=== PATIENT | female | born 1965 | race Caucasian/White ===

== ENCOUNTER 2019-11-03 05:51 | Inpatient (IN) ==
--- NOTE | 2019-10-14 15:33 | PAT Medication Instructions ---
Medication Instructions Date of Service October 14, 2019 Home Medications atorvastatin 10 mg PO QPM hydrocodone-acetaminophen 1 tab PO UD PRN multivitamin 1 cap PO DAILY DO NOT take the morning of surgery multivitamin 1 cap PO DAILY Take morning of surgery With a small sip of water, OTHERWISE NOTHING TO EAT OR DRINK AFTER MIDNIGHT: hydrocodone-acetaminophen 1 tab PO UD PRN (okay to take up to 4 hours prior to surgery if needed) Take evening before surgery hydrocodone-acetaminophen 1 tab PO UD PRN (if needed) atorvastatin 10 mg PO QPM Other Notes If you have any questions please call us at [phone] or [phone] or [phone] or [phone]
--- NOTE | 2019-10-15 10:57 | Anesthesiology Consultation ---
Date of Service October 15, 2019 Assessment & Plan (1) Encounter for pre-operative examination: Chart Review Chart Review: Acceptable Risk for Surgery and Patient seen in Pre Admission Testing Teaching & Discussion Instructed NPO after midnight before surgery, except medications with 15 cc of water. Medication instructions provided according to the PAT guidelines. History Surgery Operation Date: 10/29/19 07:45 Proposed Procedures p C5-C7 Anterior Cervical Discectomy and Fusion with Spinal Cord Monitoring - Zana Mason, Height/Weight Height: 5 ft 3 in Weight: 85.2 kg Allergies Allergy/AdvReac Type Severity Reaction Status Date / Time bupropion [From Wellbutrin] Allergy Unknown Hives Verified 10/06/19 11:10 cephalexin [From Keflex] Allergy Unknown Hives Verified 10/06/19 11:10 ibuprofen Allergy Unknown Hives Verified 10/06/19 11:10 varenicline [From Chantix] AdvReac Severe BAD Verified 10/06/19 11:10 NIGHTMARES Medications Home Medications Medication Instructions Recorded Confirmed Last Taken atorvastatin 10 mg PO QPM 10/06/19 10/06/19 Unknown hydrocodone-acetaminophen 1 tab PO UD PRN 10/06/19 10/06/19 Unknown multivitamin 1 cap PO DAILY 10/06/19 10/06/19 Unknown Past Medical History Medical History Bulging discs NECK Colitis Microscopic colitis; chronic diarrhea. Emphysema lung MILD. Has albuterol inhaler but only uses it when it's extremely humid outside. History of major depression HX MEDS, SINCE D/C'D, NOT A CURRENT PROBLEM Hyperlipidemia Exercise / Class Metabolic Activity III < 4 Walking/Shop/Light housework (+SOB with 1 FOS, feels she would have to stop at the top to catch her breath. Denies any chest pain.) Past Family History Family History Father Family history of diabetes mellitus Grandmother No problems noted. Grandfather (Maternal) No problems noted. Grandmother (Paternal) Family history of diabetes mellitus Grandmother (Maternal) Family history of diabetes mellitus Past Surgical History Surgical History History of 2 sections History of carpal tunnel surgery of left wrist History of carpal tunnel surgery of right wrist History of colonoscopy History of hysterectomy History of tonsillectomy Past Anesthesia History No Hx of Anesthesia Complications and No Family Hx of Anesthesia Complications History of PONV No Hx of PONV and No Hx of Motion Sickness STOP BANG Total 2 Social History Smoking Status: Current every day smoker tobacco type: cigarettes Smoking cigarettes per day: 1PPD/ADVISED NPO Do You Dip or Chew Tobacco: No Hx Alcohol Use: No Hx Substance Use: No Review of Systems Pt denies any recent chest pain, shortness of breath, palpitations, cough, fever or URI. Physical Exam Vital Signs BP: 114/79 P: 83bpm SPO2: 97% RA T: 97.9 F R: 16 ENMT Mouth: + dentures and + edentulous Thyromental Distance: > or= 3.5 Finger Breadths (3.5) Mallampati Class: I Neck normal visual inspection and + limited neck extension (very) Respiratory normal respiratory effort Auscultation: lungs clear to auscultation bilaterally Cardiovascular Rate/Rhythm: regular rate and regular rhythm Heart Sounds: no murmur Vessels: no carotid bruit Testing Laboratory Results 10/15/19 11:06 10/15/19 11:06 PT 10.8 Seconds (9.0-12.0) 10/15/19 11:06 INR 1.0 (0.9-1.1) 10/15/19 11:06 APTT 29.4 Seconds (21.0-31.0) 10/15/19 11:06 Urine Color Yellow 10/15/19 11:06 Urine Appearance Clear (Clear) 10/15/19 11:06 Urine pH 5.0 (4.5-7.5) 10/15/19 11:06 Ur Specific [place] 1.025 (1.000-1.030) 10/15/19 11:06 Urine Protein Negative (Negative) 10/15/19 11:06 Urine Glucose (UA) Negative (Negative) 10/15/19 11:06 Urine Ketones Negative (Negative) 10/15/19 11:06 Urine Nitrite Negative (Negative) 10/15/19 11:06 Ur Leukocyte Esterase 2+ (Negative) H 10/15/19 11:06 Urine WBC (Auto) 5-10 /hpf (0-5) H 10/15/19 11:06 Urine RBC (Auto) 5-10 /hpf (0-4) H 10/15/19 11:06 U Hyaline Cast (Auto) 1-5 /lpf (0-5) 10/15/19 11:06 U Epithel Cells (Auto) >30 /lpf (0-5) H 10/15/19 11:06 Urine Bacteria (Auto) Negative (Negative) 10/15/19 11:06 Blood Type O Positive 10/15/19 11:06 Antibody Screen NEGATIVE 10/15/19 11:06 Electrocardiogram Date: 10/15/19 Findings: + NSR @ (67bpm) iRBBB. Chest X-Ray Date: 10/15/19 Findings: + NAD
--- NOTE | 2019-10-15 11:42 | XRay Report ---
XR chest Pre-admission PA/Lat HISTORY: 54 years-old Female pat preoperative exam. No acute chest complaints COMPARISON: None TECHNIQUE: PA and lateral views of the chest FINDINGS: Cardiomediastinal and hilar silhouettes are within normal limits. There is no pneumothorax, pleural e ffusion, airspace consolidation or overt pulmonary edema. Bones of the chest appear grossly intact. IMPRESSION: No acute process. ACT 112: Negative or not required by law. The above report was generated using voice recognition software. It may contain grammatical, syntax o r spelling errors. Electronically signed by: Tejas Rodriguez M.D. 10/15/2019 11:41 AM
[2019-10-15 12:05] LABS: Basophils # (auto) 0.02 K/uL (0-0.2); Basophils % (auto) 0.3 %; Eosinophils # (auto) 0.08 K/uL (0-0.5); Hemoglobin 13.6 g/dL (12.0-16.0); Immature Granulocytes # (auto) 0.02 K/uL (0.00-0.02); Immature Granulocytes % (auto) 0.3 %; Lymphocytes # (auto) 1.92 K/uL (1.2-3.4); Lymphocytes % (auto) 25.1 %; Mean Corpuscular Hemoglobin 31.1 pg (25-34); Mean Corpuscular Hgb Conc 32.4 g/dL (32-36); Mean Corpuscular Volume 95.9 fL (80-100); Mean Platelet Volume 10.5 fL (7.4-10.4); Monocytes # (auto) 0.53 K/uL (0.11-0.59); Monocytes % (auto) 6.9 %; Neutrophils # (auto) 5.08 K/uL (1.4-6.5); Neutrophils % (auto) 66.4 %; Platelet Count 247 K/uL (130-400); RDW Coefficient of Variation 13.6 % (11.5-14.5); RDW Standard Deviation 47.9 fL (36.4-46.3); Red Blood Count 4.38 M/uL (4.2-5.4); White Blood Count 7.65 K/uL (4.8-10.8)
[2019-10-15 12:23] LABS: BUN Creatinine Ratio 9.8 (10-20); Calcium 9.1 mg/dl (8.5-10.1); Creatinine Clr Calc Pharmacy 65.6 ml/min; Est GFR (African American) 73.8; Est GFR (Non-African American) 63.7; Potassium 4.2 mmol/L (3.5-5.1)
[2019-10-15 12:24] LABS: Appearance Urine Clear (Clear); Bacteria Urine Automated Negative (Negative); Bilirubin Urine Negative (Negative); Blood Urine 1+ (Negative); Color Urine Yellow; Epithelial Cell Urine Auto >30 /lpf (0-5); Glucose Urine UA Negative (Negative); Ketones Urine Negative (Negative); Leukocyte Esterase Urine 2+ (Negative); Nitrite Urine Negative (Negative); Protein Urine Negative (Negative); Specific Gravity Urine 1.025 (1.000-1.030); Urobilinogen Urine Negative (Negative)
[2019-10-15 12:28] LABS: Partial Thromboplastin Ratio 1.1; Partial Thromboplastin Time 29.4 Seconds (21.0-31.0); Prothrombin Time 10.8 Seconds (9.0-12.0)
--- NOTE | 2019-10-15 17:02 | Electrocardiogram Report ---
Test Reason : Blood Pressure : / mmHG Vent. Rate : 067 BPM Atrial Rate : 067 BPM P-R Int : 136 ms QRS Dur : 092 ms QT Int : 418 ms P-R-T Axes : 065 044 058 degrees QTc Int : 441 ms Normal sinus rhythm Incomplete right bundle branch block Borderline ECG No previous ECGs available Confirmed by Gera Xiong ([id number]) on 10/15/2019 5:01:47 PM Referred By: Zana Mason Confirmed By:Gera Xiong
[2019-11-03] MEDS ORDERED: ACETAMINOPHEN 500 MG TAB PO SCH (06:00)
[2019-11-03] MEDS ORDERED: CLINDAMYCIN 600 MG/54 ML BAG IV SCH (06:00)
[2019-11-03] MEDS ORDERED: CEFAZOLIN 2000MG 2,000 MG/15 ML SYR IV SCH (06:00)
[2019-11-03] MEDS ORDERED: LR 15ML/HR IV SCH (06:00)
[2019-11-03] MEDS ORDERED: CeleBREX 200 MG CAP PO SCH (06:00)
[2019-11-03] MEDS ORDERED: GABAPENTIN 600 MG DOSE PO SCH (06:00)
[2019-11-03] MEDS ORDERED: ATROPINE SULFATE 0.1 MG/ML 10ML SYR IV PRN (06:42)
[2019-11-03] MEDS ORDERED: HYDROmorphone INJ 1 MG/ML SYRINGE IV PRN ×2 (06:42→11:16)
[2019-11-03] MEDS ORDERED: ePHEDrine sulfate 50 MG/ML AMP IV PRN (06:42)
[2019-11-03] MEDS ORDERED: ONDANSETRON INJ 2 MG/ML 2 ML VIAL IV PRN ×2 (06:42→11:16)
[2019-11-03] MEDS ORDERED: fentaNYL citrate 100 MCG/2 ML VIAL IV PRN (06:42)
[2019-11-03] MEDS ORDERED: LIDOCAINE HCL 2% 2 ML VIAL/AMP(20MG/ML) INFIL ONE (07:02)
[2019-11-03] MEDS ORDERED: MIDAZOLAM HCL 1 MG/ML 2ML VIAL ONE (07:02)
[2019-11-03] MEDS ORDERED: PROPOFOL IV EMULSION 10 MG/ML 20 ML VIAL IV ONE (07:02)
[2019-11-03] MEDS ORDERED: fentaNYL citrate 100 MCG/2 ML VIAL ONE (07:02)
[2019-11-03] MEDS ORDERED: BACITRACIN INJ 50,000 UNIT VIAL ONE (07:05)
[2019-11-03] MEDS ORDERED: PROPOFOL IV EMULSION 10 MG/ML 100 ML VIAL IV ONE (07:15)
--- NOTE | 2019-11-03 07:40 | History & Physical Bridge Note ---
Date of Service November 03, 2019 History & Physical Bridge Note I have examined the patient, reviewed the History & Physical and in the interval since the performance of the History & Physical I have noted the following changes of clinical significance: no changes noted
--- NOTE | 2019-11-03 07:42 | History & Physical Report ---
Date of Service November 03, 2019 Assessment & Plan (1) Herniation of cervical intervertebral disc with radiculopathy: C5-C7 anterior cervical discectomy and fusion Present on Admission?: Yes History of Present Illness Chief Complaint: Neck and right arm pain and weakness Primary Care Provider: Enrico Lima, DO This is a 54-year-old [id number] female presents with worsening arm pain and weakness. It has been progressive in nature despite aggressive nonoperative. In order to per vent long-term sequelae and permanent neurologic deficit she is here for surgical intervention. Allergies Allergy/AdvReac Type Severity Reaction Status Date / Time bupropion [From Wellbutrin] Allergy Unknown Hives Verified 11/03/19 06:12 cephalexin [From Keflex] Allergy Unknown Hives Verified 11/03/19 06:12 ibuprofen Allergy Unknown Hives Verified 11/03/19 06:12 varenicline [From Chantix] AdvReac Severe BAD Verified 11/03/19 06:12 NIGHTMARES Home Medications Home Medications Medication Instructions Recorded Confirmed Type atorvastatin 10 mg PO QPM 10/06/19 11/03/19 History hydrocodone-acetaminophen 1 tab PO BID PRN 10/06/19 11/03/19 History multivitamin 1 cap PO DAILY 10/06/19 11/03/19 History Past Med/Surg History Medical History Bulging discs NECK Colitis Microscopic colitis; chronic diarrhea. Emphysema lung MILD. Has albuterol inhaler but only uses it when it's extremely humid outside. History of major depression HX MEDS, SINCE D/C'D, NOT A CURRENT PROBLEM Hyperlipidemia Surgical History History of 2 sections History of carpal tunnel surgery of left wrist History of carpal tunnel surgery of right wrist History of colonoscopy History of hysterectomy History of tonsillectomy Family History Father Family history of diabetes mellitus Grandmother No problems noted. Grandfather (Maternal) No problems noted. Grandmother (Paternal) Family history of diabetes mellitus Grandmother (Maternal) Family history of diabetes mellitus Social History Preferred Language: Greenlandic Communication Ability: Effective Grid Molder Required: No Beliefs That Will Affect Care: None Current Living Situation: Significant Other Other Information That Helps Us Care for You: No Feels Safe at Home: Yes Smoking Status: Current every day smoker Tobacco Type: cigarettes ; Cigarettes Per Day: 1PPD/ADVISED NPO ; Do You Dip or Chew Tobacco: No ; Tobacco Cessation Education Requested by Patient: No Hx Alcohol Use: No Hx Substance Use: No Physical Exam Physical Exam: Patient is alert and oriented in obvious distress with deficits to testing the right upper extremity. Results & Data Vital Signs (Past 12 Hours) Vital Signs Temp Pulse Resp BP Pulse Ox 11/03/19 05:55 36.8 C 74 20 122/82 96
[2019-11-03] MEDS ORDERED: CLINDAMYCIN 600 MG/54 ML D5W IV ONE (07:50)
[2019-11-03] MEDS ORDERED: DEXAMETHASONE SOD INJ 4 MG/ML VIAL ONE (08:27)
[2019-11-03] MEDS ORDERED: ONDANSETRON INJ 2 MG/ML 2 ML VIAL ONE (08:27)
[2019-11-03] MEDS ORDERED: ROCURONIUM BROMIDE 10 MG/ML 5 ML VIAL ONE (08:27)
[2019-11-03] MEDS ORDERED: NEOSTIGMINE METHYLSULFATE 5 MG/5 ML SYR ONE (08:40)
[2019-11-03] MEDS ORDERED: PHENYLEPHRINE 100MCG/ML 5ML SYR ONE (08:40)
[2019-11-03] MEDS ORDERED: GLYCOPYRROLATE 0.2 MG/ML VIAL ONE (08:40)
[2019-11-03] MEDS ORDERED: FLOSEAL HEMOSTATIC MATRIX 10ML TOP ONE (09:07)
--- NOTE | 2019-11-03 09:28 | Operative Report ---
Post Operative Report Pre & Post Diagnosis Operation Date: 11/03/19 07:45 Pre-Op Diagnosis: Herniation of Cervical Intervertebral Disc with Radiculopathy C5-C7 Post-Op Diagnosis: Herniation of Cervical Intervertebral Disc with Radiculopathy C5-C7 I identified the patient and participated in the time-out.: Yes Procedure Operation Date: 11/03/19 07:45 Actual Procedures #1 anterior cervical discectomy with bilateral foraminotomies C5-6 and C6-7. #2 anterior cervical arthrodesis C5-6 and C6-7. #3 placement of Spira cage 8 mm in height filled with DBM at C5-6 and C6-7. #4 application of cabrera plate and screws across C5-6 and C6-7. Surgeon Zana Mason, Hairspring Studder Gabriela Interiano Estimated Blood Loss 10 Findings Consistent with Post-Op Diagnosis Specimens None Indications This is a 54-year-old female presents with significant neural compression in the cervical spine with subsequent radiculopathy and weakness affecting the upper extremities. Therefore we elected undergo urgent decompression and fusion. Description of Procedure Patient was met with preop the case discussed all questions dressed with heparin patient was taken back to the operative suite underwent intubation placed in supine position the Ruben table the head Mcgraw head setter. All bony prom inences well-padded eyes inspected to ensure no external pressure placed upon the. This point the anterior cervical spine was prepped and draped in normal sterile fashion. The assistance of fluoroscopy identified the see 6 vertebral body and a transverse incision was placed on the right anterior aspect of the cervical spine aligns region. Sharp dissection with the assistance of bipolar electrocautery performed to expose the anterior cervical spine from C5-C7. A self-retaining tractor was placed. Then performed a complete discectomy of C5-6 out to the uncovertebral spur laterally. This included removal of all posterior annular fibers longitudinal ligament bilateral foraminotomies performed. Endplates were then burred to subcortical bleeding bone and an 8 mm Spira cage filled with DBM tapped in position. Then proceeded to see 6 7. Again complete discectomy performed up to the operative joints bilaterally. This area did have a significant loss of muscle disc material and bilateral foraminal they removed in their entirety. Endplates were then burred to subcortical bleeding bone and an 8 mm spiral cage filled with DBM tapped in position. Distracting apparatus was removed all anterior osteophytes burred to a smooth cortical surface and a 5 complete and screws applied with the assistance of fluoroscopy. The incision was then copiously irrigated explored to ensure no damage to surrounding structures remaining bleeding. 10 round JACY drain inserted. Incision was then closed with 2 Vicryl in a fashion of 4 Monocryl for final skin closure. Steri- Strips dressings placed. Patient will continue PACU stable addition. Please note Gabriela Interiano was present at the entire procedure involved the patient positioning complex portions of the surgery and final skin closure. Lastly spinal cord monitoring was utilized that the procedure no changes noted. I attest to the content of the Intraoperative Record and any orders documented therein. Any exceptions are noted below.
--- NOTE | 2019-11-03 09:45 | Fluoroscopy Report ---
FL cervical 2-3V CLINICAL HISTORY: ACDF C5-7 COMPARISON STUDY: None. FLUOROSCOPY TIME: 15 seconds. FLUOROSCOPIC IMAGES: 3 FINDINGS: Fluoroscopy was provided for a C5-C7 anterior discectomy and fusion. Hardware is intact. Al ignment is anatomic. Endotracheal tube is partially imaged. IMPRESSION: Fluoroscopy provided for C5-C7 anterior discectomy and fusion. ACT 112: Negative or not required by law. Electronically signed by: Ronnie Nowak M.D. 11/03/2019 9:43 AM
--- NOTE | 2019-11-03 10:42 | Anesthesiology Progress Note ---
Date of Service November 03, 2019 Anesthesia Post Procedure Vital Signs Vital Signs: Temp Pulse Pulse Resp BP Pulse Ox 11/03/19 10:35 36.4 C L 57 L 18 99/60 L 100 11/03/19 10:25 36.2 C L 53 L 18 98/64 L 98 11/03/19 10:15 58 L 12 96/63 L 98 11/03/19 10:05 57 L 17 97/60 L 100 11/03/19 09:55 59 L 13 89/54 L 100 11/03/19 09:45 69 23 103/68 100 11/03/19 09:39 36.7 C 77 12 108/71 100 11/03/19 05:55 36.8 C 74 20 122/82 96 Pain Intensity Neck: Pain Intensity: 3 Transfer of Care Handoff Completed per policy Notes Mental Status: alert / awake / arousable and participated in evaluation Patient Amnestic to Procedure: Yes Nausea / Vomiting: adequately controlled Pain: adequately controlled Airway Patency, RR, SpO2: stable & adequate BP & HR: stable & adequate Hydration State: stable & adequate Anesthetic Complications: no major complications apparent and Pt Satisfied with anesthetic care
[2019-11-03] MEDS ORDERED: METOCLOPRAMIDE HCL INJ 5 MG/ML 2 ML VIAL IV PRN (11:16)
[2019-11-03] MEDS ORDERED: LORazepam 0.5 MG TAB PO PRN (11:16)
[2019-11-03] MEDS ORDERED: DEXAMETHASONE SOD PHOSPHATE 8 MG in SYRINGE 0 ML IV PRN (11:16)
[2019-11-03] MEDS ORDERED: ACETAMINOPHEN 500 MG TAB PO PRN (11:16)
[2019-11-03] MEDS ORDERED: MAGNESIUM HYDROXIDE SUSP 30 ML UDC PO PRN (11:16)
[2019-11-03] MEDS ORDERED: RACEPINEPHRINE 2.25% NEBU SOLN 0.5 ML VIAL INH PRN (11:16)
[2019-11-03] MEDS ORDERED: ALUMINUM/MAGNESIUM SUSP 30 ML UDC PO PRN (11:16)
[2019-11-03] MEDS ORDERED: PROMETHAZINE HCL 12.5 MG in SODIUM CHLORIDE 0.9% 50 ML IV PRN (11:16)
[2019-11-03] MEDS ORDERED: LORazepam 0.5 MG/1 ML VIAL IV PRN (11:16)
[2019-11-03] MEDS ORDERED: ACETAMINOPHEN 1,000 MG/100 ML VIAL IV PRN (11:16)
[2019-11-03] MEDS ORDERED: DO NOT ADMINISTER FLU VACCINE PRN (11:16)
[2019-11-03] MEDS ORDERED: SOD PHOSPHATE/SOD BIPHOSPHATE ENEMA 132 ML BTL PR PRN (11:16)
[2019-11-03] MEDS ORDERED: FAMOTIDINE 20 MG TAB PO PRN (11:16)
[2019-11-03] MEDS ORDERED: ONDANSETRON 4 MG OD TAB PO PRN (11:16)
[2019-11-03] MEDS ORDERED: HYDROmorphone INJ 0.5 MG/0.5 ML SYR IV PRN (11:16)
[2019-11-03] MEDS ORDERED: NALOXONE HCL 0.4 MG/1 ML VIAL/CARP IV PRN (11:16)
[2019-11-03] MEDS ORDERED: DO NOT ADMINISTER PNEUMOCOCCAL VACCINE PRN (11:16)
[2019-11-03] MEDS: LACTATED RINGER'S 1,000 ML IV SCH ×2 (11:38→16:48)
[2019-11-03] MEDS: [UNRECOGNIZED DRUG - REMARK] SCH ×5 (12:24→16:41)
[2019-11-03] MEDS: TRAMADOL HCL 50 MG TABLET PO PRN (12:59)
[2019-11-03] MEDS: CLINDAMYCIN 600 MG in DEXTROSE 5% 50 ML IV SCH ×2 (15:23→22:59)
[2019-11-03] MEDS ORDERED: DOCUSATE SODIUM/SENNA 50/8.6MG TAB PO SCH (21:00)
[2019-11-03] MEDS ORDERED: ATORVASTATIN 10 MG TAB PO SCH (21:00)
[2019-11-04] MEDS: LACTATED RINGER'S 1,000 ML IV SCH (03:18)
[2019-11-04] MEDS: TRAMADOL HCL 50 MG TABLET PO PRN (03:26)
[2019-11-04] MEDS: OXYCODONE HCL IR 5 MG TAB (IMMEDIATE RELEASE) PO PRN ×2 (05:50→11:07)
--- NOTE | 2019-11-04 07:34 | Anesthesiology Progress Note ---
Date of Service November 04, 2019 Anesthesia Post Procedure Vital Signs Vital Signs: Temp Pulse Pulse Resp BP Pulse Ox 11/04/19 07:28 36.6 C 75 18 153/88 H 97 11/04/19 05:30 36.6 C 70 16 134/85 98 11/04/19 03:19 36.6 C 65 12 127/78 97 11/04/19 03:12 63 16 98 11/04/19 01:30 36.9 C 63 12 118/72 97 11/03/19 23:30 36.7 C 69 14 121/71 95 11/03/19 23:18 66 20 95 11/03/19 22:04 36.7 C 75 18 134/78 97 11/03/19 20:10 36.8 C 74 18 131/84 96 11/03/19 19:42 84 16 98 11/03/19 18:15 37 C 82 20 147/83 H 97 11/03/19 16:00 36.7 C 72 20 128/81 97 11/03/19 15:30 82 20 97 11/03/19 15:19 36.8 C 82 20 130/82 97 11/03/19 14:02 20 125/82 95 11/03/19 12:48 36.6 C 91 H 16 142/83 H 99 11/03/19 12:00 65 16 118/74 100 11/03/19 11:35 57 L 67 20 118/77 100 11/03/19 11:12 62 18 100 11/03/19 10:45 36.4 C L 64 18 100/62 100 11/03/19 10:35 36.4 C L 57 L 18 99/60 L 100 11/03/19 10:25 36.2 C L 53 L 18 98/64 L 98 11/03/19 10:15 58 L 12 96/63 L 98 11/03/19 10:05 57 L 17 97/60 L 100 11/03/19 09:55 59 L 13 89/54 L 100 11/03/19 09:45 69 23 103/68 100 11/03/19 09:39 36.7 C 77 12 108/71 100 Pain Intensity Neck: Pain Intensity: 4 Notes Mental Status: alert / awake / arousable and participated in evaluation Patient Amnestic to Procedure: Yes Nausea / Vomiting: adequately controlled Pain: adequately controlled Airway Patency, RR, SpO2: stable & adequate BP & HR: stable & adequate Hydration State: stable & adequate Anesthetic Complications: no major complications apparent and Pt Satisfied with anesthetic care
[2019-11-04] MEDS ORDERED: MULTIVITAMIN TAB PO SCH (09:00)
[2019-11-04] MEDS ORDERED: POLYETHYLENE (MIRALAX) 17 GM PACK PO SCH (09:29)
--- NOTE | 2019-11-04 11:32 | Discharge Summary ---
Date of Service November 04, 2019 Admission HPI Per Admitting Provider This is a 54-year-old [id number] female presents with worsening arm pain and weakness. It has been progressive in nature despite aggressive nonoperative. In order to per vent long-term sequelae and permanent neurologic deficit she is here for surgical intervention. Principal Diagnosis Cervical spinal stenosis with myeloradiculopathy Discharge Data Allergies Allergy/AdvReac Type Severity Reaction Status Date / Time bupropion [From Wellbutrin] Allergy Unknown Hives Verified 11/03/19 06:12 cephalexin [From Keflex] Allergy Unknown Hives Verified 11/03/19 06:12 ibuprofen Allergy Unknown Hives Verified 11/03/19 06:12 varenicline [From Chantix] AdvReac Severe BAD Verified 11/03/19 06:12 NIGHTMARES Procedures Performed Operation Date: 11/03/19 07:45 Actual Procedures p C5-C7 Anterior Cervical Discectomy and Fusion, Spinal Cord Monitoring(Not Applicable) - Zana Mason DO Ordered Studies 11/03/19 07:45 FL cervical 2-3V Routine FL fluoroscopy <1hr Routine Hospital Course (1) Herniation of cervical intervertebral disc with radiculopathy: Patient went anterior cervical discectomy and fusion tolerated this well was taken to the orthopedic floor postoperative. Postop day 1 she was swallowing well no hoarseness. JACY drain decreasing probably. Arm strength improved. Pain well controlled. Subsequently discharged home. Discharge orders instructions from the chart for further review. Total Time Total Time Spent Total Time Spent (In Minutes): 20 minutes Discharge Plan Discharge Items Patient Disposition: Home - Self-Care Reason For Visit: Cervical Region Spinal Stenosis Discharge Diagnosis: Cervical spinal stenosis with myeloradiculopathy Activity: As commented below Non-emergency contact: Primary Care Provider Call non-emergency contact if: you have any medication questions Follow-up/Referrals: Enrico Lima DO [Primary Care Provider] - Diet: Regular Addtl Attending Provider Instructions: ACTIVITY RECOMMENDATIONS: SELF CARE INSTRUCTIONS AFTER CERVICAL FUSIONS 1. No smoking. Smoking drastically decreases the chance of a solid fusion. 2. No bending, lifting more than 5 pounds, or twisting (roll like a log when turning in bed). 3. You may shower 3 days after surgery. Thoroughly dry wound. Do not soak in the tub. 4. Cervical collar: Must be worn at all times including sleeping. You may remove the brace only to bath, eat and if you are sitting in a recliner. 5. Please walk as much as you can for exercise. Gradually increase the distance that you walk as your endurance increases. SPECIAL CARE INSTRUCTIONS: VERY IMPORTANT TO READ AND REVIEW A. Do not take any anti-inflammatory medications (i.e. Indocin, Advil, Aspirin, Naprosyn, Aleve, Motrin, etc.) as these may inhibit the chance of a solid fusion. Tylenol is okay to take. B. Your surgical incision has been closed with a cosmetic suture under the skin that will dissolve in about 6 weeks. In 14 days, you can use a pair of clean scissors and cut the suture that is left outside of the skin at the ends of your incision. C. Complications are uncommon, but please contact us if you have any signs or symptoms of: 1. wound infection (fever higher than 102.5 degrees F, redness, separation of wound, drainage, or increasing pain from the incision) 2. blood clots in legs (pain, swelling, redness and warmth in legs) 3. urinary tract infection (fever higher than 102.5 degrees, burning upon urination or increased frequency of urination) 4. nerve problems (inability to walk on your toes or heels, numbness, loss of bowel or bladder control) 5. any other symptoms that concern you. D. Please call the office at if you have any concerns or questions about your operation or recovery. MANAGING PAIN AFTER SPINAL SURGERY 1. Narcotic medication is intended for short-term use and will be provided for surgical pain. Surgical pain usually lasts for a period of 4-6 weeks. Narcotic medication includes Percocet, Vicodin, Darvocet, Tylenol #3 or Lortab. 2. Longer-term pain is more appropriately treated with non-narcotic medication such as Tylenol ES. 3. Muscle spasm is not appropriately treated with narcotics. Muscle relaxers such as Soma, Flexeril or Skelaxin can be used along with Tylenol ES. 4. Remember that we all live with some "aches and pains". This is not unusual or uncommon after an injury or as we get older. 5. We will provide appropriate medication within the normal guidelines of their prescribed use. We will also be very cautious and aware of potential abuse and extended duration of patients' medication needs. 6. Please allow 2-3 days to process refills. Prescriptions will not be mailed but must be picked up at the office. FOLLOW UP VISIT: Keep your scheduled follow-up appointment. Any questions, please call the office at . Pending Studies at Discharge: No Visit Report Forms: Smoking Cessation Stand-Alone Forms: Coronavirus, My [facility], Opioid Pain Management, Work/School Release (Inpt), Smoking Cessation Medications and DC Order Prescriptions: New hydrocodone-acetaminophen 5-325 mg tablet See Rx Instructions .ROUTE .COMPLEX PRN (Reason: pain) Qty: 20 RF: 0 Continued atorvastatin 10 mg Tablet 10 mg PO QPM RF: 0 multivitamin Capsule 1 cap PO DAILY RF: 0 Discontinued hydrocodone-acetaminophen 5-325 mg Tablet 1 tab PO BID PRN (Reason: Pain) RF: 0 Discharge Orders: Discharge Order (Routine); Ordered 11/04/19 Ordered By: Zana Jansen/Other Patient Handouts: Neck Probs, 2019-nCoV, Fusion Spinal Cervical Admission Data Admit Date/Time: 11/03/19 09:51 Attending Provider: Zana Mason Admit Provider: Zana Mason Primary Care Provider: Enrico Lima V. Other Interventions: Discharge Summary Assessment (RN) Last Done: 11/04/19 10:35
[2019-11-05] MEDS ORDERED: bisacodyL 10 MG SUPP PR PRN (09:29)
== END 2019-11-04 11:50 | disposition home or self-care (01) | DRG 473 ==
LOC: 3E 05:51 → ASU 05:51 → OBSVTOIN 09:51